=== PATIENT | male | born 1975 | race Caucasian/White ===

== ENCOUNTER 2022-03-30 19:00 | Inpatient (IN) | payer MEDICAID ==
[~2022-03-30] VITALS: Ht 170.2 cm; Wt 80.0 kg
[2022-03-30] MEDS ORDERED: aspirin 81mg tab.chew PO ONE (20:40)
[2022-03-30] MEDS ORDERED: metoprolol tartrate 50mg tablet PO ONE (20:40)
[2022-03-30] MEDS ORDERED: nitroGLYCERIN 1gm ointment UD TP ONE (20:50)
[2022-03-30] MEDS ORDERED: furosemide 10 MG/1 ML 10ml inj IV ONE (20:50)
[2022-03-30 20:57] LABS: BASOPHILS # (AUTO) 0.1 X10'3 (0-0.2); BASOPHILS % (AUTO) 1.3 % (0-1); EOSINOPHILS # (AUTO) 0.1 X10'3 (0-0.9); HEMATOCRIT 45.4 % (42.0-52.0); HEMOGLOBIN 15.3 g/dl (14.0-17.9); LYMPHOCYTES # (AUTO) 2.2 X10'3 (1.1-4.8); MEAN CORPUSCULAR HEMOGLOBIN 33.2 PG (27.0-31.0); MEAN CORPUSCULAR HGB CONC 33.7 g/dL (33.0-36.5); MEAN CORPUSCULAR VOLUME 98.5 FL (78-98); MEAN PLATELET VOLUME 8.4 FL (7.4-10.4); MONOCYTES # (AUTO) 0.6 X10'3 (0-0.9); MONOCYTES % (AUTO) 7.1 % (2-12); NEUTROPHILS # (AUTO) 5.2 X10'3 (1.8-7.7); NEUTROPHILS % (AUTO) 63.6 % (42-75); PLATELET COUNT 276 X10'3 (140-440); RED BLOOD COUNT 4.61 X10'6 (4.70-6.10); RED CELL DISTRIBUTION WIDTH 14.2 % (11.5-14.5); WHITE BLOOD COUNT 8.2 X10'3 (4.5-11.0)
[2022-03-30 21:10] LABS: ALANINE AMINOTRANSFERASE 86 U/L (12-78); ALBUMIN 3.7 G/DL (3.4-5.0); ALBUMIN/GLOBULIN RATIO 1.2 (1.1-1.5); ALKALINE PHOSPHATASE 41 IU/L (46-116); ANION GAP 8 (8-16); ASPARTATE AMINO TRANSFERASE 87 U/L (10-37); BILIRUBIN,TOTAL 0.5 MG/DL (0.1-1.0); BLOOD UREA NITROGEN 20 MG/DL (7-18); BUN/CREATININE RATIO 16.1 (5.4-32.0); CALCIUM 8.6 MG/DL (8.5-10.1); CHLORIDE 103 MMOL/L (99-107); CREATININE 1.24 MG/DL (0.60-1.10); GLUCOSE 100 MG/DL (70-104); POTASSIUM 4.2 MMOL/L (3.5-5.1); SODIUM 136 MMOL/L (135-145); TOTAL CARBON DIOXIDE 24.6 MMOL/L (24-32); TOTAL PROTEIN 6.9 G/DL (6.4-8.2); eGFR 63 ML/MIN
[2022-03-30 21:26] LABS: CLARITY,URINE CLEAR (Clear); COLOR,URINE YELLOW (Yellow); GLUCOSE, URINE NEGATIVE (Neg); KETONES,URINE TRACE mg/dl (Neg); LEUKOCYTE ESTERASE ,URINE NEGATIVE (Neg); NITRITES, URINE NEGATIVE (Neg); OCCULT BLOOD,URINE NEGATIVE (Neg); PROTEIN,URINE >=300 mg/dl (Neg); UROBILINOGEN,URINE 0.2 E.U/dL (0.2-1.0)
[2022-03-30 21:27] LABS: UA COLLECTION TYPE VOIDED
[2022-03-30 21:34] LABS: BACTERIA,URINE FEW /HPF (Neg); RBC,URINE 0-2 /HPF (0-2); SQUAMOUS EPITHELIAL CELL,UR FEW /LPF (FEW)
[2022-03-30 21:35] LABS: HYALINE CASTS >30 /LPF (NEGATIVE)
[2022-03-30 21:37] LABS: ETHANOL < 0.010 GM/DL (0.0-0.010)
[2022-03-30 21:39] LABS: URINE AMPHETAMINE SCREEN NEGATIVE (Neg); URINE BARBITUATE SCREEN NEGATIVE (Neg); URINE BENZODIAZEPINES SCREEN NEGATIVE (Neg); URINE CANNABINOID SCREEN NEGATIVE (Neg); URINE COCAINE SCREEN NEGATIVE (Neg); URINE METHADONE SCREEN NEGATIVE (Neg); URINE OPIATE SCREEN NEGATIVE (Neg); URINE PHENCYCLIDINE SCREEN NEGATIVE (Neg)
[2022-03-30] MEDS ORDERED: hydrALAZINE 20mg/ml inj. IV ONE (21:40)
[2022-03-30] MEDS ORDERED: magnesium hydroxide 30ml (MOM) UD suspension PO PRN (22:35)
[2022-03-30] MEDS ORDERED: magnesium 2GM in 50ml NS 50 ML IV PRN (22:35)
[2022-03-30] MEDS ORDERED: magnesium Cl slow-release 64mg tablet PO PRN (22:35)
[2022-03-30] MEDS ORDERED: magnesium 4gm in 100ml NS 100 ML IV PRN (22:35)
[2022-03-30] MEDS ORDERED: mag hydrox/Alum hydrox/simeth 30ml oral suspension PO PRN (22:35)
[2022-03-30] MEDS ORDERED: POTASSIUM BICARB 20meq eff tab 20 MEQ TABLET.EFF PO PRN ×2 (22:35)
[2022-03-30] MEDS ORDERED: ondansetron/PF 4mg/2ml inj IV PRN (22:35)
[2022-03-30] MEDS ORDERED: acetaminophen 325mg tablet PO PRN (22:35)
[2022-03-30] MEDS ORDERED: PERFLUTREN PROTEIN-A MICROSPHR (Optison) 0.22 MG/ML 3ML VIAL IV ONE (22:35)
[2022-03-30] MEDS ORDERED: amLODIPine 5mg tablet PO ONE (22:40)
[2022-03-30 23:05] LABS: MAGNESIUM 1.6 MG/DL (1.5-2.4); POTASSIUM 3.8 MMOL/L (3.5-5.1)
[2022-03-30] MEDS ORDERED: NO HOME MEDS (23:58)
[2022-03-31] VITALS (12 sets, daily range): BP systolic 131–152; BP diastolic 83–110
[2022-03-31] MEDS ORDERED: aminophylline 500mg/20ml vial IV PRN (07:10)
[2022-03-31] MEDS ORDERED: nitroGLYCERIN 0.4mg SUBLingual tab SL PRN (07:10)
[2022-03-31] MEDS ORDERED: regadenoson 0.4mg/5ml syringe IV PRN (07:10)
[2022-03-31] MEDS ORDERED: metoprolol tartrate 1mg/ml inj IV PRN (07:10)
[2022-03-31 07:12] LABS: BASOPHILS # (AUTO) 0.1 X10'3 (0-0.2); EOSINOPHILS # (AUTO) 0.1 X10'3 (0-0.9); EOSINOPHILS % (AUTO) 2.1 % (0-6); HEMOGLOBIN 14.7 g/dl (14.0-17.9); LYMPHOCYTES # (AUTO) 1.4 X10'3 (1.1-4.8); MONOCYTES # (AUTO) 0.5 X10'3 (0-0.9)
[2022-03-31 07:15] LABS: BASOPHILS % (AUTO) 1.4 % (0-1); HEMATOCRIT 43.6 % (42.0-52.0); LYMPHOCYTES % (AUTO) 23.2 % (21-51); MEAN CORPUSCULAR HGB CONC 33.6 g/dL (33.0-36.5); MEAN CORPUSCULAR VOLUME 98.4 FL (78-98); MEAN PLATELET VOLUME 8.8 FL (7.4-10.4); MONOCYTES % (AUTO) 8.3 % (2-12); PLATELET COUNT 228 X10'3 (140-440); RED BLOOD COUNT 4.43 X10'6 (4.70-6.10); RED CELL DISTRIBUTION WIDTH 14.4 % (11.5-14.5); WHITE BLOOD COUNT 6.2 X10'3 (4.5-11.0)
[2022-03-31 07:30] LABS: ALANINE AMINOTRANSFERASE 78 U/L (12-78); ALBUMIN 3.2 G/DL (3.4-5.0); ALBUMIN/GLOBULIN RATIO 1.1 (1.1-1.5); ALKALINE PHOSPHATASE 34 IU/L (46-116); ANION GAP 10 (8-16); ASPARTATE AMINO TRANSFERASE 68 U/L (10-37); BILIRUBIN,TOTAL 0.7 MG/DL (0.1-1.0); BLOOD UREA NITROGEN 15 MG/DL (7-18); CHLORIDE 106 MMOL/L (99-107); CHOL/HDL RATIO 4.7 (0.00-4.99); CHOLESTEROL 131 MG/DL (0-200); CREATININE 0.94 MG/DL (0.60-1.10); GLUCOSE 83 MG/DL (70-104); HDL CHOLESTEROL 28 MG/DL (35-60); LDL CHOLESTEROL 89 MG/DL (50-100); MAGNESIUM 1.6 MG/DL (1.5-2.4); POTASSIUM 3.3 MMOL/L (3.5-5.1); SODIUM 141 MMOL/L (135-145); TOTAL CARBON DIOXIDE 24.7 MMOL/L (24-32); TRIGLYCERIDES 92 MG/DL (20-135); eGFR 86 ML/MIN
[2022-03-31] MEDS: K and/or MAG REPLACEMENT MC SCH ×2 (08:00→20:00)
[2022-03-31] MEDS: aspirin 325mg tablet, delayed-release (Ecotrin) PO SCH (08:03)
[2022-03-31] MEDS: docusate sod 100mg capsule PO SCH ×2 (08:03→20:00)
[2022-03-31] MEDS: heparin, porcine 5000 units/ml vial SQ SCH ×2 (08:04→21:10)
[2022-03-31] MEDS: metoprolol tartrate 50mg tablet PO SCH ×2 (08:04→21:17)
[2022-03-31] MEDS: lisinopril 10 MG tablet PO SCH (08:04)
[2022-03-31] MEDS: potassium CL 10mEq/100ml bag 100 ML IV PRN ×2 (10:47→13:38)
[2022-03-31] MEDS ORDERED: furosemide 10 MG/1 ML 10ml inj IV SCH (11:45)
--- NOTE | 2022-03-31 18:19 | NUR ---
Problems reprioritized. Patient report given, questions answered & plan of care reviewed with KAYLEN ALCAZAR.
[2022-04-01 02:00] VITALS: BP 135/94
--- NOTE | 2022-04-01 06:41 | NUR ---
Problems reprioritized. Patient report given, questions answered & plan of care reviewed with INGE Can.
[2022-04-01 07:37] VITALS: BP 137/90
[2022-04-01 07:43] LABS: BASOPHILS # (AUTO) 0.1 X10'3 (0-0.2); EOSINOPHILS # (AUTO) 0.2 X10'3 (0-0.9); LYMPHOCYTES # (AUTO) 1.4 X10'3 (1.1-4.8); NEUTROPHILS # (AUTO) 3.4 X10'3 (1.8-7.7); WHITE BLOOD COUNT 5.7 X10'3 (4.5-11.0)
[2022-04-01 07:46] LABS: BASOPHILS % (AUTO) 1.7 % (0-1); EOSINOPHILS % (AUTO) 2.7 % (0-6); HEMATOCRIT 45.5 % (42.0-52.0); LYMPHOCYTES % (AUTO) 24.2 % (21-51); MEAN CORPUSCULAR HEMOGLOBIN 32.5 PG (27.0-31.0); MEAN CORPUSCULAR VOLUME 98.5 FL (78-98); MEAN PLATELET VOLUME 9.1 FL (7.4-10.4); MONOCYTES # (AUTO) 0.6 X10'3 (0-0.9); MONOCYTES % (AUTO) 11.4 % (2-12); PLATELET COUNT 234 X10'3 (140-440); RED BLOOD COUNT 4.62 X10'6 (4.70-6.10)
[2022-04-01] MEDS: K and/or MAG REPLACEMENT MC SCH ×2 (08:00→19:18)
[2022-04-01] MEDS: docusate sod 100mg capsule PO SCH ×2 (08:00→19:23)
[2022-04-01 08:09] LABS: ALANINE AMINOTRANSFERASE 61 U/L (12-78); ALBUMIN/GLOBULIN RATIO 1.1 (1.1-1.5); ALKALINE PHOSPHATASE 33 IU/L (46-116); ANION GAP 8 (8-16); ASPARTATE AMINO TRANSFERASE 35 U/L (10-37); BILIRUBIN,TOTAL 0.4 MG/DL (0.1-1.0); BLOOD UREA NITROGEN 18 MG/DL (7-18); BUN/CREATININE RATIO 16.1 (5.4-32.0); CALCIUM 8.5 MG/DL (8.5-10.1); CHLORIDE 107 MMOL/L (99-107); CHOL/HDL RATIO 5.2 (0.00-4.99); CHOLESTEROL 134 MG/DL (0-200); CREATININE 1.12 MG/DL (0.60-1.10); GLUCOSE 92 MG/DL (70-104); HDL CHOLESTEROL 26 MG/DL (35-60); LDL CHOLESTEROL 93 MG/DL (50-100); MAGNESIUM 1.8 MG/DL (1.5-2.4); POTASSIUM 3.5 MMOL/L (3.5-5.1); SODIUM 142 MMOL/L (135-145); TOTAL CARBON DIOXIDE 26.6 MMOL/L (24-32); TOTAL PROTEIN 5.8 G/DL (6.4-8.2); TRIGLYCERIDES 101 MG/DL (20-135); eGFR 71 ML/MIN
[2022-04-01 08:58] LABS: HEMOGLOBIN A1C 5.8 % (4.5-6.2)
[2022-04-01] MEDS ORDERED: furosemide 40mg/4ml inj IV SCH (09:11)
[2022-04-01] MEDS: heparin, porcine 5000 units/ml vial SQ SCH ×2 (09:27→19:22)
[2022-04-01] MEDS: lisinopril 10 MG tablet PO SCH (09:28)
[2022-04-01] MEDS: metoprolol tartrate 50mg tablet PO SCH ×2 (09:29→19:23)
[2022-04-01] MEDS: aspirin 325mg tablet, delayed-release (Ecotrin) PO SCH (09:30)
--- NOTE | 2022-04-01 11:28 | NUR ---
Pt has new orders for aldactone PO; received IVP lasix this am. order clarification sent to RM [id number]: Pt received 40mg IVP Furosemide this am, do you want him to also have PO Spironolactone this am?
[2022-04-01] MEDS: spironolactone 25 MG tablet PO SCH (12:56)
[2022-04-01 18:00] VITALS: BP 167/114
[2022-04-01 19:20] VITALS: BP 153/114
[2022-04-01 19:44] VITALS: BP 133/93
[2022-04-01 22:00] VITALS: BP 140/101
--- NOTE | 2022-04-02 06:39 | NUR ---
Problems reprioritized. Patient report given, questions answered & plan of care reviewed with INGE OROPEZA.
[2022-04-02 06:44] LABS: BASOPHILS # (AUTO) 0.1 X10'3 (0-0.2); BASOPHILS % (AUTO) 1.3 % (0-1); EOSINOPHILS # (AUTO) 0.2 X10'3 (0-0.9); EOSINOPHILS % (AUTO) 2.3 % (0-6); HEMATOCRIT 43.7 % (42.0-52.0); LYMPHOCYTES # (AUTO) 1.4 X10'3 (1.1-4.8); LYMPHOCYTES % (AUTO) 19.9 % (21-51); MEAN CORPUSCULAR HEMOGLOBIN 33.5 PG (27.0-31.0); MEAN CORPUSCULAR HGB CONC 34.2 g/dL (33.0-36.5); MEAN PLATELET VOLUME 9.2 FL (7.4-10.4); MONOCYTES # (AUTO) 0.9 X10'3 (0-0.9); NEUTROPHILS # (AUTO) 4.6 X10'3 (1.8-7.7); NEUTROPHILS % (AUTO) 63.5 % (42-75); PLATELET COUNT 221 X10'3 (140-440); RED BLOOD COUNT 4.46 X10'6 (4.70-6.10); RED CELL DISTRIBUTION WIDTH 14.1 % (11.5-14.5); WHITE BLOOD COUNT 7.2 X10'3 (4.5-11.0)
[2022-04-02 06:55] VITALS: BP 161/99
[2022-04-02 07:42] LABS: ALANINE AMINOTRANSFERASE 51 U/L (12-78); ALBUMIN 3.1 G/DL (3.4-5.0); ALBUMIN/GLOBULIN RATIO 1.1 (1.1-1.5); ALKALINE PHOSPHATASE 32 IU/L (46-116); ANION GAP 11 (8-16); ASPARTATE AMINO TRANSFERASE 22 U/L (10-37); BILIRUBIN,TOTAL 0.3 MG/DL (0.1-1.0); BLOOD UREA NITROGEN 21 MG/DL (7-18); BUN/CREATININE RATIO 21.2 (5.4-32.0); CALCIUM 8.5 MG/DL (8.5-10.1); CHLORIDE 105 MMOL/L (99-107); CREATININE 0.99 MG/DL (0.60-1.10); GLUCOSE 92 MG/DL (70-104); MAGNESIUM 1.8 MG/DL (1.5-2.4); POTASSIUM 3.6 MMOL/L (3.5-5.1); SODIUM 141 MMOL/L (135-145); TOTAL CARBON DIOXIDE 24.7 MMOL/L (24-32); eGFR 81 ML/MIN
[2022-04-02] MEDS: K and/or MAG REPLACEMENT MC SCH (08:00)
[2022-04-02] MEDS ORDERED: EMPAGLIFLOZIN 10 MG TABLET PO SCH (08:00)
[2022-04-02] MEDS: heparin, porcine 5000 units/ml vial SQ SCH (08:11)
[2022-04-02] MEDS: spironolactone 25 MG tablet PO SCH (08:11)
[2022-04-02] MEDS: docusate sod 100mg capsule PO SCH (08:12)
[2022-04-02] MEDS: aspirin 325mg tablet, delayed-release (Ecotrin) PO SCH (08:12)
[2022-04-02] MEDS: lisinopril 10 MG tablet PO SCH (08:12)
[2022-04-02] MEDS: metoprolol tartrate 50mg tablet PO SCH (08:12)
[2022-04-02] MEDS ORDERED: FURO20TA4 PO (11:27)
[2022-04-02] MEDS ORDERED: SPIR25TA PO (11:27)
[2022-04-02] MEDS ORDERED: EMPA10TA PO (11:27)
[2022-04-02] MEDS ORDERED: LISI10TA27 PO (11:27)
[2022-04-02] MEDS ORDERED: ASPI-1071 PO (11:27)
[2022-04-02] MEDS ORDERED: METO50TA16 PO (11:27)
[2022-04-02 11:29] VITALS: BP 140/104
== END 2022-04-02 13:45 | disposition home or self-care (01) | DRG 194 ==
LOC: ER 19:01 → ED HOLD 22:37 → PCU 3S 03-31 16:43
PROVIDERS: ADMIT Internal Medicine; ATTEND Family Medicine
PROC: 4A02XM4 Measurement of Cardiac Total Activity, External Approach (ICD-10-PCS; principal; 2022-03-31)
PROC: 3E033HZ Introduction of Radioactive Substance into Peripheral Vein, Percutaneous Approach (ICD-10-PCS; 2022-03-31)
DX: I11.0 Hypertensive heart disease with heart failure (principal); I27.20 Pulmonary hypertension, unspecified; R73.03 Prediabetes; I50.23 Acute on chronic systolic (congestive) heart failure; Z79.84 Long term (current) use of oral hypoglycemic drugs; Z82.49 Family history of ischemic heart disease and other diseases of the circulatory system; Z71.6 Tobacco abuse counseling; Z72.0 Tobacco use
CPT/HCPCS: 36415; 71045; 78452; 80053; 80061; 80305; 80320; 81001; 83036; 83735; 83880; 84132; 84484; 85025; 87081; 87088; 93005; 93017; 93306; 96374; 96375; 99285; A6258; A6449; A9500; G0378; J0360; J1644; J1940; J2785; J3480; J7050